=== PATIENT | male | born 1985 | race Caucasian/White ===

== ENCOUNTER 2020-06-17 14:02 | Emergency (ER) | payer SELFPAY, OTHER ==
[2020-06-17 16:09] LABS: Absolute Lymphocytes (CBC) 1.5 K/uL (0.7-4.9); Basophils % 0.4 % (0-1.3); Hematocrit 45.6 % (39.6-49.0); MPV 8.3 fL (7.6-11.3)
[2020-06-17] MEDS ORDERED: NA CHLORIDE 0.9% 1,000 ML ONE (16:17)
[2020-06-17 16:22] LABS: Potassium 3.6 mmol/L (3.5-5.1)
--- NOTE | 2020-06-17 16:55 | RAD REPORT ---
EXAM DESCRIPTION: Renetta Single View06/17/2020 3:51 pm CLINICAL HISTORY: Cough COMPARISON: none FINDINGS: The lungs appear clear of acute infiltrate. The heart is normal size IMPRESSION: No acute abnormalities displayed
--- NOTE | 2020-06-17 17:07 | EDPHYS ---
Physician Documentation [facility] Name: Angel Blake Age: 34 yrs Sex: Male : 1985 Arrival Date: 06/17/2020 Time: 14:04 Bed 8 Private MD: ED Physician Chip Field HPI: 06/17 15:48 This 34 yrs old Male presents to ER via Ambulatory with complaints of Fever, kb Shortness Of Breath, Abdominal Pain. 15:48 The patient or guardian reports cough, that is intermittent, described as moderate, kb with no sputum, difficulty breathing, flu symptoms, low-grade fever, myalgias, no appetite. Onset: The symptoms/episode began/occurred 5 day(s) ago. Severity of symptoms: At their worst the symptoms were moderate, in the emergency department the symptoms are unchanged. Modifying factors: The symptoms are alleviated by nothing, the symptoms are aggravated by nothing. Associated signs and symptoms: Pertinent positives: diarrhea, fever, sore throat, Pertinent negatives: chest pain, ear ache, nausea, rhinorrhea, vomiting. The patient has not experienced similar symptoms in the past. The patient has not recently seen a physician. Historical: - Allergies: 14:09 No Known Allergies; sv - PMHx: 14:09 None; sv - PSHx: 14:09 None; sv - Immunization history:: Adult Immunizations up to date. - Social history:: Smoking status: Patient reports the use of cigarette tobacco products, denies chronic smoking, but will smoke occasionally. ROS: 15:45 Neck: Negative for injury, pain, and swelling, Cardiovascular: Negative for chest pain, kb palpitations, and edema, Back: Negative for injury and pain, : Negative for injury, bleeding, discharge, and swelling, MS/Extremity: Negative for injury and deformity, Skin: Negative for injury, rash, and discoloration, Neuro: Negative for headache, weakness, numbness, tingling, and seizure. 15:45 Constitutional: Positive for body aches, chills, fatigue, fever, malaise, Negative for poor PO intake, weight loss. 15:45 ENT: Positive for sore throat. 15:45 Respiratory: Positive for cough, shortness of breath, Negative for dyspnea on exertion, hemoptysis, orthopnea, pleurisy, sputum production, wheezing. 15:45 Abdomen/GI: Positive for diarrhea, abdominal cramps. Exam: 15:45 Constitutional: This is a well developed, well nourished patient who is awake, alert, kb and in no acute distress. Head/Face: Normocephalic, atraumatic. Chest/axilla: Normal chest wall appearance and motion. Nontender with no deformity. No lesions are appreciated. Cardiovascular: Regular rate and rhythm with a normal S1 and S2. No gallops, murmurs, or rubs. Normal PMI, no JVD. No pulse deficits. Respiratory: Lungs have equal breath sounds bilaterally, clear to auscultation and percussion. No rales, rhonchi or wheezes noted. No increased work of breathing, no retractions or nasal flaring. Abdomen/GI: Soft, non-tender, with normal bowel sounds. No distension or tympany. No guarding or rebound. No evidence of tenderness throughout. Skin: Warm, dry with normal turgor. Normal color with no rashes, no lesions, and no evidence of cellulitis. MS/ Extremity: Pulses equal, no cyanosis. Neurovascular intact. Full, normal range of motion. Neuro: Awake and alert, GCS 15, oriented to person, place, time, and situation. Cranial nerves II-XII grossly intact. Motor strength 5/5 in all extremities. Sensory grossly intact. Cerebellar exam normal. Normal gait. Vital Signs: 14:09 BP 152 / 108; Pulse 94; Resp 20; Temp 98.4(O); Pulse Ox 99% ; Weight 65.77 kg; Height 5 sv ft. 10 in. (177.80 cm); 16:15 BP 116 / 89; Pulse 63; Resp 16; Pulse Ox 97% on R/A; hb 17:07 BP 116 / 94; Pulse 63; Resp 15; Pulse Ox 100% ; hb 17:31 Pulse 63; Resp 16; Temp 98.2; Pulse Ox 100% ; Pain 0/10; ll1 14:09 Body Mass Index 20.81 (65.77 kg, 177.80 cm) sv MDM: 15:25 Patient medically screened. kb 15:46 Data reviewed: vital signs, nurses notes. Data interpreted: Pulse oximetry: on room air kb is 99 %. Interpretation: normal. 17:07 Counseling: I had a detailed discussion with the patient and/or guardian regarding: the kb historical points, exam findings, and any diagnostic results supporting the discharge/admit diagnosis, lab results, radiology results, the need for outpatient follow up, a family practitioner, to return to the emergency department if symptoms worsen or persist or if there are any questions or concerns that arise at home. 06/17 15:36 Order name: CBC with Diff; Complete Time: 16:15 kb 06/17 15:36 Order name: Basic Metabolic Panel; Complete Time: 16:23 kb 06/17 15:36 Order name: Chest Single View XRAY; Complete Time: 17:06 kb 06/17 15:36 Order name: COVID-19; Complete Time: 16:51 kb 06/17 15:46 Order name: Strep; Complete Time: 16:27 kb 06/17 16:27 Order name: Throat Culture EDOR 06/17 15:36 Order name: IV Start; Complete Time: 16:05 kb Administered Medications: 16:10 Drug: NS 0.9% 1000 ml Route: IV; Rate: 1000 ml; Site: left antecubital; ll1 17:32 Follow up: Response: No adverse reaction; RASS: Alert and Calm (0); IV Status: ll1 Completed infusion; IV Intake: 1000ml Disposition: 06/17/20 17:07 Discharged to Home. Impression: Acute upper respiratory infection, unspecified. - Condition is Stable. - Discharge Instructions: Viral Respiratory Infection, [id number], COVID-19. - Prescriptions for Tessalon Perles 100 mg Oral Capsule - take 1 capsule by ORAL route every 8 hours As needed; 15 capsule. Albuterol Sulfate 90 mcg/actuation - inhale 1-2 puff by INHALATION route every 4-6 hours; 1 Inhaler. - Medication Reconciliation Form, Thank You Letter, Antibiotic Education, Prescription Opioid Use form. - Follow up: Emergency Department; When: As needed; Reason: Worsening of condition. Follow up: Private Physician; When: 2 - 3 days; Reason: Recheck today's complaints, Continuance of care, Re-evaluation by your physician. Signatures: Dispatcher [employer] [facility] Maryjane Mota, Yaz Reyes RN RN sv Lewis, Lynsay, RN RN ll1 Corrections: (The following items were deleted from the chart) 17:30 17:07 06/17/2020 17:07 Discharged to Home. Impression: Acute upper respiratory ll1 infection, unspecified. Condition is Stable. Forms are Medication Reconciliation Form, Thank You Letter, Antibiotic Education, Prescription Opioid Use. Follow up: Emergency Department; When: As needed; Reason: Worsening of condition. Follow up: Private Physician; When: 2 - 3 days; Reason: Recheck today's complaints, Continuance of care, Re-evaluation by your physician. kb
--- NOTE | 2020-06-17 17:07 | ER ---
Nurse's Notes [facility] Name: Angel Blake Age: 34 yrs Sex: Male : 1985 Arrival Date: 06/17/2020 Time: 14:04 Bed 8 Private MD: Diagnosis: Acute upper respiratory infection, unspecified Presentation: 06/17 14:07 Chief complaint: Patient states: abd pain, sore throat, SOB, fever Tmax 102.8 x 5 days. sv Coronavirus screen: Client denies travel out of the [place] in the last 14 days. fever, sore throat, Client presents with at least one sign or symptom that may indicate coronavirus-19. Standard/surgical mask placed on the client. Provider contacted for isolation considerations. Ebola Screen: No symptoms or risks identified at this time. Risk Assessment: Do you want to hurt yourself or someone else? Patient reports no desire to harm self or others. Onset of symptoms was June 12, 2020. 14:07 Method Of Arrival: Ambulatory sv 14:07 Acuity: MICHAEL 3 sv 14:16 Initial Sepsis Screen: Does the patient meet any 2 criteria? HR > 90 bpm. No. Patient's sv initial sepsis screen is negative. Does the patient have a suspected source of infection? No. Patient's initial sepsis screen is negative. Triage Assessment: 14:07 General: Appears in no apparent distress. uncomfortable, slender, Behavior is calm, sv cooperative, appropriate for age. General: Reports fever for > 3 days, feeling ill for > 3 days. Pain: Complains of pain in throat. Neuro: Level of Consciousness is awake, alert, obeys commands, Gait is steady. Respiratory: Reports shortness of breath Respiratory effort is even, unlabored. 17:31 Respiratory: Onset: The symptoms/episode began/occurred 5 days, the patient has mild ll1 shortness of breath. Historical: - Allergies: 14:09 No Known Allergies; sv - PMHx: 14:09 None; sv - PSHx: 14:09 None; sv - Immunization history:: Adult Immunizations up to date. - Social history:: Smoking status: Patient reports the use of cigarette tobacco products, denies chronic smoking, but will smoke occasionally. Screenin:15 Abuse screen: Denies threats or abuse. Denies injuries from another. Nutritional hb screening: No deficits noted. Tuberculosis screening: No symptoms or risk factors identified. Fall Risk None identified. Assessment: 15:45 General: Appears in no apparent distress. Behavior is calm, cooperative. Pain: Pain hb currently is 4 out of 10 on a pain scale. Neuro: Level of Consciousness is awake, alert, obeys commands, Oriented to person, place, time, situation. Cardiovascular: Capillary refill < 3 seconds Patient's skin is warm and dry. Rhythm is regular. Respiratory: Reports shortness of breath at rest Airway is patent Respiratory effort is even, unlabored, Respiratory pattern is regular, symmetrical. GI: Abdomen is non-distended, Reports lower abdominal pain, upper abdominal pain, nausea. : No signs and/or symptoms were reported regarding the genitourinary system. EENT: Reports sore throat. Derm: Skin is pink, warm \T\ dry. Musculoskeletal: No signs and/or symptoms reported regarding the musculoskeletal system. 16:15 Reassessment: Patient appears in no apparent distress at this time. Patient and/or hb family updated on plan of care and expected duration. Pain level reassessed. Patient is alert, oriented x 3, equal unlabored respirations, skin warm/dry/pink. 17:06 Reassessment: Patient appears in no apparent distress at this time. No changes from hb previously documented assessment. Patient and/or family updated on plan of care and expected duration. Pain level reassessed. Patient is alert, oriented x 3, equal unlabored respirations, skin warm/dry/pink. 17:31 Respiratory: Breath sounds are clear bilaterally. ll1 Vital Signs: 14:09 BP 152 / 108; Pulse 94; Resp 20; Temp 98.4(O); Pulse Ox 99% ; Weight 65.77 kg; Height 5 sv ft. 10 in. (177.80 cm); 16:15 BP 116 / 89; Pulse 63; Resp 16; Pulse Ox 97% on R/A; hb 17:07 BP 116 / 94; Pulse 63; Resp 15; Pulse Ox 100% ; hb 17:31 Pulse 63; Resp 16; Temp 98.2; Pulse Ox 100% ; Pain 0/10; ll1 14:09 Body Mass Index 20.81 (65.77 kg, 177.80 cm) sv ED Course: 14:04 Patient arrived in ED. ds1 14:07 Arm band placed on. sv 14:08 Triage completed. sv 15:10 Maryjane Mota [facility]C [facility]. kb 15:10 Chip Field MD is Attending Physician. kb 15:51 Chest Single View XRAY In Process Unspecified. EDMS 16:15 Patient has correct armband on for positive identification. Bed in low position. Call hb light in reach. Side rails up X 1. 16:50 Inserted saline lock: 20 gauge in left antecubital area, using aseptic technique. Blood ll1 collected. 17:31 No provider procedures requiring assistance completed. IV discontinued, intact, ll1 bleeding controlled, No redness/swelling at site. Pressure dressing applied. Administered Medications: 16:10 Drug: NS 0.9% 1000 ml Route: IV; Rate: 1000 ml; Site: left antecubital; ll1 17:32 Follow up: Response: No adverse reaction; RASS: Alert and Calm (0); IV Status: ll1 Completed infusion; IV Intake: 1000ml Intake: 17:32 IV: 1000ml; Total: 1000ml. ll1 Outcome: 17:07 Discharge ordered by . kb 17:30 Patient left the ED. ll1 17:31 Discharged to home ambulatory. ll1 17:31 Condition: stable 17:31 Discharge instructions given to patient, Instructed on discharge instructions, follow up and referral plans. medication usage, Demonstrated understanding of instructions, follow-up care, medications, Prescriptions given X 2. Addendum: 06/19/2020 13:23 Addendum: Other Pt called ER and provided new phone number [phone]. a a5 Signatures: Dispatcher [employer] [facility] Maryjane Mota FNP-C FNP-Ckb Verde, Stephanie RN Radha Bowers ds1 Galilea Duffy RN VISHNU aa5 Marilynn Culp RN RN hb Lewis, Lynsay, RN RN ll1 Corrections: (The following items were deleted from the chart) 06/17 14:16 14:07 Chief complaint: Patient states: abd pain, sore throat, fever Tmax 102.8 x 5 sv days. sv
[2020-06-20 19:46] VITALS: TEMP 98.4
[2020-06-20 19:54] VITALS: BP 116/94; O2SAT 100
== END 2020-06-17 17:30 | disposition home or self-care (01) ==
LOC: ER 14:02
DX: J06.9 Acute upper respiratory infection, unspecified (principal); Z20.828 Contact with and (suspected) exposure to other viral communicable diseases; Z72.0 Tobacco use
CPT/HCPCS: 36415; 71045; 80048; 85025; 87070; 87081; 96360; 99284; J7030; U0002